=== PATIENT | male | born 2000 | race Caucasian/White ===

== ENCOUNTER 2021-10-29 14:29 | Emergency (ER) | payer SELFPAY | END 2021-10-29 16:11 | disposition home or self-care (01) | LOC: CSHERS 14:29 | DX: S00.33XA Contusion of nose, initial encounter (principal); F17.200 Nicotine dependence, unspecified, uncomplicated; W18.30XA Fall on same level, unspecified, initial encounter; W50.0XXA Accidental hit or strike by another person, initial encounter | CPT/HCPCS: 70160 ==